=== PATIENT | male | born 1960 | race Caucasian/White ===

== ENCOUNTER 2017-01-10 09:54 | Outpatient (CLI) | payer OTHER ==
[2017-01-10 18:02] LABS: ALT (SGPT) 44 U/L (8-55); AST (SGOT) 30 U/L (5-34); Albumin 4.5 g/dL (3.5-5.0); Alkaline Phosphatase 77 U/L (40-150); Anion Gap 18 mmol/L (10-20); BUN (Urea Nitrogen) 14 mg/dL (8.4-25.7); Bilirubin, Total 0.7 mg/dL (0.2-1.2); Calc. Creatinine Clearance 0 mL/min (70-130); Calcium 9.8 mg/dL (7.8-10.44); Carbon Dioxide 25 mmol/L (22-29); Cardiac Risk 6.6 (Less than 4.5); Chloride 101 mmol/L (98-107); Cholesterol 244 mg/dl (< 200 Desired); Estimated GFR-MDRD 62; Globulin 3.3 g/dL (2.4-3.5); Glucose 92 mg/dL (70-105); HDL Cholesterol 37 mg/dL (>60 Neg Risk); LDL Cholesterol, Calculated 174 mg/dL; Potassium 4.3 mmol/L (3.5-5.1); Protein, Total 7.8 g/dL (6.0-8.3); Sodium 140 mmol/L (136-145); Triglycerides 165 mg/dL (Less than 150)
[2017-01-10 23:07] LABS: Eosinophils 8 % (0-10); Hemoglobin 16.6 g/dL (14.0-18.0); Lymphocytes 35 % (21-51); MDiff Complete? YES; Mean Corpuscular HGB CONC 32.7 g/dL (32.0-36.0); Mean Corpuscular Hemoglobin 29.3 pg (27.0-31.0); Mean Corpuscular Volume 89.5 fl (80.0-94.0); Monocytes 5 % (0-10); Neutrophil 52 % (42-75); PLT Morphology Comment Appears Adequate; Platelet Count 285 thou/uL (130-400); RBC Distribution Width 11.6 % (11.5-14.5); RBC Morphology Normal; Red Blood Cell (RBC) Count 5.66 mill/uL (4.70-6.10); White Blood Cell (WBC) Count 7.2 thou/uL (4.8-10.8)
== END 2017-01-10 09:55 | disposition home or self-care (01) ==
LOC: NAVSJIPCSP 09:54
DX: Z12.5 Encounter for screening for malignant neoplasm of prostate (principal); E78.2 Mixed hyperlipidemia; I10 Essential (primary) hypertension
CPT/HCPCS: 36415; 80053; 80061; 85025; G0103

== ENCOUNTER 2018-03-23 19:24 | Emergency (ER) | payer OTHER ==
[2018-03-23] MEDS ORDERED: Adacel (T-DAP) 0.5 ML VIAL ONE (19:49)
--- NOTE | 2018-03-23 20:32 | RAD ---
RIGHT ELBOW FOUR VIEWS: 03/23/18 HISTORY: Fall. Pain. FINDINGS: There is a joint effusion. There is a mildly displaced/impacted radial head fracture. No additional f ractures are appreciated. IMPRESSION: Radial head fracture with associated joint effusion. POS: PPP
--- NOTE | 2018-03-23 20:34 | RAD ---
RIGHT WRIST THREE VIEWS: 03/23/18 HISTORY: Fall. Pain. COMPARISON: None. FINDINGS: Intercarpal and radiocarpal joint spaces are preserved. No fracture. No cortical irregularity. No mal alignment. IMPRESSION: No fracture. If there is pain or point tenderness, immobilization and followup imaging in 7 to 10 day s. POS: PPP
== END 2018-03-23 20:45 | disposition home or self-care (01) ==
LOC: NAV ERS 19:24
DX: S52.121A Displaced fracture of head of right radius, initial encounter for closed fracture (principal); Z87.891 Personal history of nicotine dependence; Z79.899 Other long term (current) drug therapy; V29.9XXA Motorcycle rider (driver) (passenger) injured in unspecified traffic accident, initial encounter
CPT/HCPCS: 29105; 90471; 90715